=== PATIENT | female | born 1955 | race Caucasian/White ===

== ENCOUNTER 2017-02-20 12:06 | Emergency (ER) | payer OTHER ==
[~2017-02-20] VITALS: Ht 160 cm; Wt 68.9 kg
[2017-02-20] MEDS ORDERED: SYNTHROID100 MCG (12:33)
[2017-02-20] MEDS ORDERED: SIMVASTATIN20 MG (12:33)
== END 2017-02-20 21:58 | disposition home or self-care (01) ==
LOC: ER 12:06
DX: J45.998 Other asthma (principal); J11.1 Influenza due to unidentified influenza virus with other respiratory manifestations